=== PATIENT | female | born 1975 ===

== ENCOUNTER 2016-12-23 11:38 | Emergency (ER) | payer MEDICAID, OTHER ==
[2016-12-23 11:38] VITALS: BMI 32.1
[2016-12-23 11:52] VITALS: BP 160/92; PULSE 79; TEMP 98.9; O2SAT 99
[2016-12-23 12:08] VITALS: RESP 16
== END 2016-12-23 13:12 | disposition home or self-care (01) ==
LOC: H.ER 11:38
DX: M25.561 Pain in right knee (principal)

== ENCOUNTER 2017-01-05 16:00 | Emergency (ER) | payer SELFPAY ==
[2017-01-05 16:00] VITALS: BMI 32.1
[2017-01-05 16:09] VITALS: PULSE 69; RESP 16; TEMP 99.1; O2SAT 99
--- NOTE | 2017-01-05 16:45 | ED PDOC ---
HPI: Chest Pain Time Seen by Provider: 01/05/17 16:36 Chief Complaint (Nursing): Chest Pain Chief Complaint (Provider): Chest pain History Per: Patient Additional Complaint(s): 41 yo female, PMH of HTN, DM and Hypothyroidism, presents to ED for evaluation of sharp chest pain on the right side x 2 days, reproducible upon palpation and with movement. No medications taken to alleviate symptoms thus far. No diaphoresis, no palpitations, no SOB Past Medical History Reviewed: Nursing Documentation, Vital Signs Vital Signs: Last Vital Signs Temp 99.1 F 01/05/17 16:07 Pulse 69 01/05/17 16:07 Resp 16 01/05/17 16:07 BP Pulse Ox 99 01/05/17 16:45 - Medical History PMH: Arthritis, Diabetes, HTN, Hypercholesterolemia, Hypothyroidism Denies: Chronic Kidney Disease - Surgical History Surgical History: Tonsillectomy - Family History Family History: States: Unknown Family Hx - Living Arrangements Living Arrangements: With Family - Social History Current smoker - smoking cessation education provided: No Alcohol: None Drugs: Denies - Home Medications Home Medications: Ambulatory Orders Medication Instructions Recorded Dicyclomine [Bentyl] 20 mg PO Q12 PRN #20 tab 07/30/14 Esomeprazole Magnesium [Nexium] 40 mg PO DAILY #28 ecc 07/30/14 Levothyroxine [Synthroid] 175 mcg PO DAILY 07/30/14 Losartan Potassium [Losartan 50 mg PO DAILY 07/30/14 Potassium] Metformin HCl [Metformin] 1,000 mg PO BID 07/30/14 Metoprolol Succinate [Metoprolol 50 mg PO DAILY 07/30/14 Succinate Xl] Diclofenac Sodium 50 mg PO BID #20 tablet.dr BOWEN 12/23/16 Cyclobenzaprine [Cyclobenzaprine 10 mg PO TID #20 tab 01/05/17 HCl] Ibuprofen [Motrin] 600 mg PO Q6 #20 tab 01/05/17 - Allergies Allergies/Adverse Reactions: Allergies Allergy/AdvReac Type Severity Reaction Status Date / Time No Known Allergies Allergy Verified 07/30/14 17:01 RYAN Risk Score for UA/NSTEMI - RYAN Risk Score Age > 64: NO 3 or more CAD Risk Factors: NO Known CAD (Stenosis greater than 50%): NO Aspirin use in past 7 days: NO Severe Angina: NO EKG ST changes greater than 0.5mm: NO Positive Cardiac Marker: NO RYAN Score: 0 Risk %: 5% Wells Criteria for PE - Wells Criteria for Pulmonary Embolism Clinical Signs and Symptoms of DVT: No P.E is #1 Diagnosis, or Equally Likely: No Heart Rate >100: No Immobilization at least 3 days;Surgery previous 4 weeks: No Previous, objectively diagnosed PE or DVT: No Hemoptysis: No Malignancy w/treatment within 6 months, or palliative: No Total Score: 0 Review of Systems ROS Statement: Except As Marked, All Systems Reviewed And Found Negative Cardiovascular: Positive for: Chest Pain Physical Exam - Reviewed Nursing Documentation Reviewed: Yes Vital Signs Reviewed: Yes - Physical Exam Appears: Positive for: Well, Non-toxic, No Acute Distress Head Exam: Positive for: ATRAUMATIC, NORMAL INSPECTION, NORMOCEPHALIC Skin: Positive for: Normal Color, Warm, DRY Eye Exam: Positive for: EOMI, Normal appearance, PERRL ENT: Positive for: Normal ENT Inspection Neck: Positive for: Normal, Painless ROM Cardiovascular/Chest: Positive for: Regular Rate, Rhythm. Negative for: Chest Non Tender (right sided chest wall tenderness over 4-6th ribs) Respiratory: Positive for: CNT, Normal Breath Sounds Gastrointestinal/Abdominal: Positive for: Normal Exam, Bowel Sounds, Soft Back: Positive for: Normal Inspection Extremity: Positive for: Normal ROM Neurologic/Psych: Positive for: Alert, Oriented - Laboratory Results Result Diagrams: 01/05/17 17:25 01/05/17 17:25 - ECG O2 Sat by Pulse Oximetry: 99 Medical Decision Making Medical Decision Making: labs resulted and reviewed with Pt who demonstrated full understanding CXR: Disposition - Clinical Impression Clinical Impression: Chest wall pain - Patient ED Disposition Is Patient to be Admitted: No - Disposition Disposition: Routine/Home Disposition Time: 20:01 Condition: STABLE Prescriptions: Cyclobenzaprine [Cyclobenzaprine HCl] 10 mg PO TID #20 tab Ibuprofen [Motrin] 600 mg PO Q6 #20 tab Instructions: Chest Wall Pain (ED) Forms: [employer] (German)
[2017-01-05 17:29] LABS: BASO % 0.4 % (0.0-2.0); EOS # 0.1 K/uL (0.0-0.7); EOS % 2.2 % (0.0-4.0); HEMATOCRIT 40.4 % (34.0-47.0); LYMPH # 1.7 K/uL (1.0-4.3); LYMPH % 26.9 % (20.0-40.0); MEAN CELL VOLUME 84.5 fl (81.0-99.0); MEAN CORPUSCULAR HEMOGLOBIN 27.5 pg (27.0-31.0); MEAN CORPUSCULAR HGB CONC 32.6 g/dL (33.0-37.0); MONO # 0.4 K/uL (0.0-0.8); MONO % 6.1 % (0.0-10.0); NEUT % 64.4 % (50.0-75.0); NRBC % 0.1 % (0.0-0.0); RED CELL DISTRIBUTION WIDTH 13.8 % (11.5-14.5); WHITE BLOOD COUNT 6.2 K/uL (4.8-10.8)
[2017-01-05 17:53] LABS: ALB/GLOB RATIO 1.3 (1.0-2.1); ALKALINE PHOSPHATASE 92 U/L (38-126); ALT/SGPT 47 U/L (9-52); AST/SGOT 37 U/L (14-36); BILIRUBIN,TOTAL 0.5 mg/dl (0.2-1.3); BLOOD UREA NITROGEN 12 mg/dl (7-17); CARBON DIOXIDE 23 mmol/L (22-30); CHLORIDE 105 mmol/L (98-107); GFR AFRICAN-AMERICAN > 60; GLUCOSE,RANDOM 105 mg/dL (65-105); POTASSIUM 3.8 MMOL/L (3.6-5.0); SODIUM 140 mmol/l (132-148); TOTAL PROTEIN 7.6 G/DL (6.3-8.2)
[2017-01-05 18:46] LABS: PARTIAL THROMBOPLASTIN TIME 35.2 Seconds (25.6-37.1)
--- NOTE | 2017-01-06 07:32 | CARD ---
APPROVED REPORT EKG Measurement Heart [id number] <Conclusion> Normal sinus rhythm Possible Left atrial enlargement Left ventricular hypertrophy Abnormal ECG
--- NOTE | 2017-01-06 08:57 | RAD ---
HISTORY: chest pain COMPARISON: 10/28/2011 TECHNIQUE: Chest PA and lateral FINDINGS: LUNGS: No active pulmonary disease. PLEURA: No significant pleural effusion identified. No pneumothorax apparent. CARDIOVASCULAR: Normal. OSSEOUS STRUCTURES: No significant abnormalities. VISUALIZED UPPER ABDOMEN: Normal. OTHER FINDINGS: None. IMPRESSION: No active disease.
== END 2017-01-05 20:43 | disposition home or self-care (01) ==
LOC: H.ER 16:00
DX: R07.89 Other chest pain (principal)